=== PATIENT | female | born 1990 | race African-American/Black ===

== ENCOUNTER 2018-08-10 03:45 | Inpatient (IN) | payer MEDICAID ==
[~2018-08-10] VITALS: Ht 162.6 cm; Wt 85.3 kg
[2018-08-10] VITALS (8 sets, daily range): BP systolic 110–133; BP diastolic 55–94
[2018-08-10 04:52] LABS: Basophils # (auto) 0 uL; Basophils % (auto) 0.1 % (0.0-2.0); Eosinophils # (auto) 0 uL; Eosinophils % (auto) 0.4 % (0.0-7.0); Hematocrit 30.6 % (36.0-46.0); Hemoglobin 10.5 g/dL (12.2-16.2); Lymphocytes # (auto) 2.7 uL; Lymphocytes % (auto) 27.6 % (10.0-50.0); Mean Corpuscular Hgb Conc. 34.2 g/dL (32.0-36.0); Mean Corpuscular Volume 84.9 fL (80.0-100.0); Monocytes # (auto) 0.7 uL; Neutrophils # (auto) 6.3 uL; Neutrophils % (auto) 64.9 % (37.0-80.0); Nucleated Red Blood Cells % 0.1 %; Platelet Count (auto) 259 10^3/uL (140-450); Red Blood Cells 3.61 10^6/uL (4.0-5.20); Red Cell Distribution Width 14.1 % (11.8-14.3); White Blood Cell 9.8 10^3/uL (4.4-10.8)
[2018-08-10 05:04] LABS: Albumin 2.8 g/dL (3.4-5.0); BUN/Creatinine Ratio 6.5; Calcium 8.5 mg/dL (8.5-10.1)
[2018-08-10 05:06] LABS: Bilirubin, Total 0.9 mg/dL (0.2-1.0); Total Protein 7.2 g/dL (6.4-8.2)
[2018-08-10 05:07] LABS: INR < 0.93 (0.9-1.15); Partial Thromboplastin Time 28.9 sec (23.64-32.05)
[2018-08-10 05:25] LABS: Urine Bacteria FEW /hpf (None Seen); Urine Blood Negative /uL (Negative); Urine Mucus FEW (None Seen); Urine Specific Gravity 1.017 (1.001-1.035); Urine WBC 3 /hpf (0 - 5)
[2018-08-10 05:54] LABS: Alcohol, Urine < 3.0 mg/dL (0-5); Amphetamine Screen, Urine NEGATIVE (NEGATIVE); Barbiturate Scree,Urine NEGATIVE (NEGATIVE); Benzodiazephine Screen, Urine NEGATIVE (NEGATIVE); Cannabinoid Screen, Urine POSITIVE (NEGATIVE); Cocaine Screen, Urine NEGATIVE (NEGATIVE); Opiate Scree,Urine NEGATIVE (NEGATIVE); Phencyclidine Screen, Urine NEGATIVE (NEGATIVE)
[2018-08-10] MEDS ORDERED: TETRACAINE 1% INJ 2 ML VIAL IJ ONE (07:01)
[2018-08-10] MEDS ORDERED: SUCCINYLCHOLINE CHLORIDE 20 MG/ML 10ML VIAL IV ONE (07:01)
[2018-08-10] MEDS ORDERED: MIDAZOLAM HCL 1MG/1ML-2 ML VIAL ONE (07:04)
[2018-08-10] MEDS ORDERED: OXYTOCIN 10 UNIT/ML 10ML VIAL ONE (07:04)
[2018-08-10] MEDS ORDERED: ceFAZolin 1GM VL ONE (07:04)
[2018-08-10] MEDS ORDERED: fentaNYL CITRATE 100 MCG/2 ML VL ONE (07:04)
[2018-08-10] MEDS ORDERED: MORPHINE SULF(PF) 0.5MG/ML 10ML VIAL ONE (07:04)
[2018-08-10] MEDS ORDERED: ONDANSETRON HCL 4 MG/2 ML VIAL ONE (07:04)
[2018-08-10] MEDS ORDERED: SODIUM CHLORIDE LOCK 20 ML ONE (07:04)
[2018-08-10] MEDS ORDERED: ONDANSETRON HCL 4 MG/2 ML VIAL IV PRN (07:30)
[2018-08-10] MEDS ORDERED: ceFAZolin 1GM/50ML 50 ML IV SCH (07:30)
[2018-08-10] MEDS ORDERED: MORPHINE SULFATE 4 MG/ML SYR/VIAL IV PRN (07:30)
[2018-08-10] MEDS ORDERED: KETOROLAC TROMETH 15 mg/ml 1ML VL IV PRN (07:30)
--- NOTE | 2018-08-10 08:40 | NUR ---
PT REPORT GIVEN TO Betsy CORONA RN ON PATIENT, RELINQUISHED CARE.
[2018-08-10] MEDS ORDERED: METOCLOPRAMIDE HCL 5MG/ml INJ 2ml VIAL IV ONE (09:00)
[2018-08-10] MEDS: HYDROmorphone HCL 2 MG/ML VL IV PRN ×2 (09:00→09:10)
[2018-08-10] MEDS ORDERED: NALOXONE HCL 0.4 MG/ML VIAL IV PRN (09:00)
[2018-08-10] MEDS ORDERED: diphenhdrAMINE HCL 50 MG/1 ML VL IV PRN (09:00)
[2018-08-10] MEDS ORDERED: PROMETHAZINE HCL 25 MG/ML 1ML ONE (09:02)
--- NOTE | 2018-08-10 09:31 | NUR ---
PT ARRIVES TO UNIT FROM PACU VIA BED. PT STABLE AT THIS TIME. VS ARE FOLLOWS: 133/94, 100%, 85HR, 17RR, TEMP 97.5. FUNDUS IS 1 ABOVE UMBILICUS, FIRM, SMALL BLEEDING, PERINEUM INTACT, DRESSING ON INCISION HAS MINIMAL DRAINAGE NOTED, CIRCLED AND TIMED. SCDS APPLIED, ARI PAD CHANGED, ABD BINDER IN PLACE. FULL PP PHYSICAL ASSESSMENT COMPLETED, PT RESTING COMFORTABLY AT THIS TIME. NO S/S OF DISTRESS NOTED.
[2018-08-10] MEDS: LACT. RINGERS/OXYTOCIN 20UNITS 1,000 ML IV SCH ×3 (09:43→20:45)
--- NOTE | 2018-08-10 10:30 | NUR ---
75ML PALE YELLOW URINE EMPTIED FROM ARIZA BAG. Addendum: 08/10/18 at 1157 by DANIEL CORONA RN RN Amended: Links added.
--- NOTE | 2018-08-10 11:30 | NUR ---
75ML PALE YELLOW URINE EMPTIED FROM ARIZA. Addendum: 08/10/18 at 1158 by DANIEL CORONA RN RN Amended: Links added.
--- NOTE | 2018-08-10 11:59 | NUR ---
50ML PALE YELLOW URINE EMPTIED FROM ARIZA. Addendum: 08/10/18 at 1159 by DANIEL CORONA RN RN Amended: Links added.
--- NOTE | 2018-08-10 12:15 | NUR ---
FULL REPORT GIVEN TO MARC ON STABLE PT. RELINQUISHED CARE.
[2018-08-10] MEDS ORDERED: POTASSIUM CHL 20 Meq TABLET PO ONE (12:30)
[2018-08-10] MEDS: LACTATED RINGER'S 1,000 ML IV SCH ×3 (12:31→15:53)
--- NOTE | 2018-08-10 12:34 | NUR ---
MEDICATION FOR PAIN ORDERS RECEIVED FROM DR ANTUNEZ
[2018-08-10] MEDS ORDERED: ACETAMINOPHEN IV 1000 MG/100ML (10MG/ML) IV ONE (12:45)
[2018-08-10] MEDS: ceFAZolin 1GM/50ML 50 ML IV SCH (15:52)
--- NOTE | 2018-08-10 17:10 | NUR ---
PTs IV came out.
--- NOTE | 2018-08-10 17:20 | NUR ---
IV restarted to L hand 20 g introcan by Maddie DUENAS. LR infusing at 125 ml/hr via infusion pump.
[2018-08-10 20:23] LABS: Basophils # (auto) 0 uL; Basophils % (auto) 0.2 % (0.0-2.0); Eosinophils # (auto) 0.1 uL; Eosinophils % (auto) 0.6 % (0.0-7.0); Hematocrit 28.1 % (36.0-46.0); Hemoglobin 9.4 g/dL (12.2-16.2); Lymphocytes # (auto) 0.9 uL; Mean Corpuscular Hemoglobin 28.9 pg (28.0-32.0); Mean Corpuscular Hgb Conc. 33.6 g/dL (32.0-36.0); Mean Corpuscular Volume 86.1 fL (80.0-100.0); Monocytes # (auto) 0.9 uL; Monocytes % (auto) 6.9 % (0.0-12.0); Neutrophils # (auto) 10.8 uL; Neutrophils % (auto) 85.3 % (37.0-80.0); Platelet Count (auto) 209 10^3/uL (140-450); Red Blood Cells 3.26 10^6/uL (4.0-5.20); White Blood Cell 12.6 10^3/uL (4.4-10.8)
[2018-08-10] MEDS: MORPHINE SULF INJ 2 MG/ML SYRINGE 1ML IV PRN (20:27)
[2018-08-10] MEDS ORDERED: DERMOPLAST 60ML BOTTLE TOP PRN (22:00)
[2018-08-10] MEDS ORDERED: WITCH HAZEL-GLYCERIN PAD TOP PRN (22:00)
[2018-08-10] MEDS ORDERED: PHISODERM TOP SOLN 240ML BTL TOP PRN (22:00)
[2018-08-11] VITALS (8 sets, daily range): BP systolic 108–125; BP diastolic 56–75
[2018-08-11] MEDS: MORPHINE SULF INJ 2 MG/ML SYRINGE 1ML IV PRN (00:45)
[2018-08-11] MEDS: ceFAZolin 1GM/50ML 50 ML IV SCH ×2 (00:45→08:06)
[2018-08-11] MEDS ORDERED: KETOROLAC TROMETH 15 mg/ml 1ML VL IV PRN (01:45)
[2018-08-11] MEDS ORDERED: KETOROLAC TROMETH 30 MG/ML 1ML VIAL ONE (02:35)
[2018-08-11] MEDS: LACT. RINGERS/OXYTOCIN 20UNITS 1,000 ML IV SCH (03:25)
--- NOTE | 2018-08-11 05:40 | NUR ---
Turner out Output this PM shift has been >= 30ml/hr. Order to discontinue turner catheter. Turner dc'd with clean technique following deflation of balloon. Patient tolerated well with no complaints of pain. Pt educated on need to void within 6 hours and to increase oral fluid intake. Continue plan of care.
[2018-08-11 06:04] LABS: Basophils # (auto) 0 uL; Basophils % (auto) 0.1 % (0.0-2.0); Eosinophils # (auto) 0.1 uL; Eosinophils % (auto) 0.9 % (0.0-7.0); Hemoglobin 9.1 g/dL (12.2-16.2); Lymphocytes # (auto) 1.1 uL; Mean Corpuscular Hemoglobin 29.2 pg (28.0-32.0); Mean Corpuscular Hgb Conc. 33.9 g/dL (32.0-36.0); Mean Corpuscular Volume 86.3 fL (80.0-100.0); Monocytes # (auto) 1.1 uL; Monocytes % (auto) 8.9 % (0.0-12.0); Neutrophils # (auto) 10.4 uL; Neutrophils % (auto) 81.1 % (37.0-80.0); Platelet Count (auto) 203 10^3/uL (140-450); Red Blood Cells 3.13 10^6/uL (4.0-5.20); Red Cell Distribution Width 14.4 % (11.8-14.3); White Blood Cell 12.8 10^3/uL (4.4-10.8)
[2018-08-11] MEDS ORDERED: BISACODYL 10 MG RECT SUPP PR PRN ×3 (06:45→08:00)
[2018-08-11 07:28] LABS: Potassium 3.3 mmol/L (3.5-5.1)
[2018-08-11 07:40] LABS: Albumin 2.3 g/dL (3.4-5.0); BUN/Creatinine Ratio 4.3; Bilirubin, Total 1.5 mg/dL (0.2-1.0); Calcium 8.2 mg/dL (8.5-10.1); Total Protein 6.1 g/dL (6.4-8.2)
[2018-08-11] MEDS ORDERED: HYDROcodone-ACET 5/325MG TAB PO PRN (07:45)
[2018-08-11] MEDS: DOCUSATE CALCIUM 240 MG CAP PO SCH (09:43)
[2018-08-11] MEDS: DOCUSATE SOD 100 MG CAP PO SCH ×2 (09:43→23:11)
[2018-08-11] MEDS: FERROUS SULFATE 325 MG TAB PO SCH ×2 (09:44→23:11)
[2018-08-11] MEDS ORDERED: DOCUSATE SOD 100 MG CAP PO SCH (10:00)
[2018-08-11] MEDS ORDERED: POTASSIUM CHL 20 Meq TABLET PO ONE ×2 (10:45→11:45)
--- NOTE | 2018-08-11 11:00 | NUR ---
Report this morning received from Ethan Moore stating that turner was removed at 0540; This RN advises patient to void her bladder as soon as possible to avoid replacement of turner catheter.
[2018-08-11 11:06] LABS: RPR Non Reactive (Non Reactive)
--- NOTE | 2018-08-11 11:15 | NUR ---
Pt was able to void 100mL of clear urine; pt instructed to ambulated and drink fluids; will retry to void by 1200.
[2018-08-11] MEDS: SIMETHICONE 80 MG CHEWABLE TABLET PO SCH ×3 (11:43→23:11)
--- NOTE | 2018-08-11 12:00 | NUR ---
Pt unable to void at this time; IV bolus of 500mL given at this time.
[2018-08-11] MEDS: LACTATED RINGER'S 1,000 ML IV SCH ×2 (12:02→15:17)
--- NOTE | 2018-08-11 14:15 | NUR ---
Received referral to see pt due to a positive thc. The baby was also positive. The Pt states she used THC due to her vomiting. Pt stated that she will not use thc at this point. Pt was questioned if she thought she had a drug problem the pt stated no. Pt baby is doing well. The pt states she has supplies for the baby. Mother was informed that this case would be reported to CPS. patient verbalized understanding.
--- NOTE | 2018-08-11 14:45 | NUR ---
Call placed to Dr Lima in clinic; full SBAR given including VS, urine output, pt ambulation and bolus given; orders received to give 1,000mL bolus; orders will be carried out.
[2018-08-11] MEDS: IBUPROFEN 800 MG TAB PO PRN (15:15)
[2018-08-11] MEDS ORDERED: PROMETHAZINE HCL 25 MG/ML 1ML IV ONE (15:30)
--- NOTE | 2018-08-11 17:00 | NUR ---
Straight cath performed with output of 70 mL; Report given to Dr Lima on unit; orders received to continue to have patient continue to hydrate orally, and measure output with the hat. Orders will be carried out.
--- NOTE | 2018-08-11 20:00 | NUR ---
Output Pt states that she got up to void and had a bowel movement. Pt states that she did not put the hat in the toilet before voiding because she had to have a bowel movement and "It was a lot, I couldn't believe I was peeing so much." Pt educated on importance of using hat to measure urine output with every void and encouraged to drink her whole pitcher of ice water within the next two hours. Pt verbalizes understanding.
[2018-08-11] MEDS ORDERED: PREN-96 PO (22:17)
[2018-08-11] MEDS: HYDROcodone-ACET 5/325MG TAB PO PRN (23:11)
[2018-08-12] MEDS: LACTATED RINGER'S 1,000 ML IV SCH (02:44)
[2018-08-12 03:00] VITALS: BP 115/63
[2018-08-12] MEDS: HYDROcodone-ACET 5/325MG TAB PO PRN ×3 (03:08→14:59)
--- NOTE | 2018-08-12 03:12 | NUR ---
Oral fluid intake Pt has had total measured voids of 450ml this shift, averaging 50ml/hr. Pt encouraged to increase oral fluid intake, water pitcher at bedside. Pt states "water makes me sick to my stomach". Pt provided watered down cranberry juice for the second time this shift. Continue plan of care.
[2018-08-12] MEDS: SIMETHICONE 80 MG CHEWABLE TABLET PO SCH ×4 (06:30→22:00)
--- NOTE | 2018-08-12 07:40 | NUR ---
IV removal IV DC'd with clean sterile technique, catheter fully intact. Pressure dressing applied to site. Patient tolerated well.
[2018-08-12 08:04] VITALS: BP 105/62
[2018-08-12] MEDS: IBUPROFEN 800 MG TAB PO PRN ×2 (08:11→18:18)
[2018-08-12] MEDS: DOCUSATE CALCIUM 240 MG CAP PO SCH (10:07)
[2018-08-12] MEDS: FERROUS SULFATE 325 MG TAB PO SCH (10:08)
[2018-08-12] MEDS: DOCUSATE SOD 100 MG CAP PO SCH ×2 (10:08→22:00)
[2018-08-12 11:20] VITALS: BP 124/70
[2018-08-12] MEDS ORDERED: SODIUM CHLOR 0.9% PF (SALINE LOCK) 10ML VIAL/SYR IV SCH (14:00)
[2018-08-12 14:43] VITALS: BP 111/74
[2018-08-12 19:00] VITALS: BP 126/71
[2018-08-12 23:30] VITALS: BP 121/74
[2018-08-13] MEDS: HYDROcodone-ACET 5/325MG TAB PO PRN (00:37)
[2018-08-13 03:00] VITALS: BP 113/63
--- NOTE | 2018-08-13 05:43 | NUR ---
Call placed to Dr. Maldonado, regarding missed dose of Iron/PO, Per Dr. Maldonado no action required,
[2018-08-13] MEDS: SIMETHICONE 80 MG CHEWABLE TABLET PO SCH (06:00)
[2018-08-13 07:00] VITALS: BP 128/85
[2018-08-13] MEDS: IBUPROFEN 800 MG TAB PO PRN (08:03)
[2018-08-13] MEDS: FERROUS SULFATE 325 MG TAB PO SCH (10:00)
[2018-08-13 10:59] VITALS: BP 129/85
--- NOTE | 2018-08-13 11:15 | NUR ---
Discharge: Discharge instructions given to mother of baby as ordered. Copies of and hearing screening, along with vaccination record given to mother. Mother encouraged to follow up with [employer] choice and to give envelope with infants information to marriage and family therapist at 1st office visit. All questions and concerns addressed. Mother of baby verbalized understanding and agreed to comply. Mother of baby encouraged to prepare for departure and notify RN ready to leave room for ID band removal/verification and car seat check.
--- NOTE | 2018-08-13 11:15 | NUR ---
Discharge: Discharge instructions given as ordered. Pt encouraged to follow up with MEDICAL LAB TECH INSTRUCTOR as instructed. All questions and concerns addressed. Patient verbalized understanding. Medication reconciliation completed and copy given to patient. All required/requested vaccines given and copies of vaccinations given to patient. Patient encouraged to prepare to depart unit.
--- NOTE | 2018-08-13 11:48 | NUR ---
Discharge: Patient taken to vehicle ambulatory with all personal belongings, accompanied by staff and family member. No distress noted at time of departure, no adverse changes in status since initial assessment.
== END 2018-08-13 11:48 | disposition home or self-care (01) | DRG 540 ==
LOC: LDRP 03:45
PROVIDERS: ADMIT Obstetrics & Gynecology; ATTEND Obstetrics & Gynecology
PROC: 10D00Z1 Extraction of Products of Conception, Low, Open Approach (ICD-10-PCS; principal; 2018-08-10 07:21)
DX: O34.211 Maternal care for low transverse scar from previous cesarean delivery (principal); Z37.0 Single live birth; Z3A.39 39 weeks gestation of pregnancy
CPT/HCPCS: 36415; 51702; 59025; 80053; 80307; 81001; 81002; 84112; 85025; 85610; 85730; 86592; 86850; 86900; 86901; 94762; 96361; 96365; 96366; 96374; 96375; G0378; J0131; J0330; J0690; J1885; J2250; J2405; J2590